=== PATIENT | male | born 1955 | race Caucasian/White ===

== ENCOUNTER 2019-02-08 09:18 | Emergency (ER) | payer BC, OTHER ==
[~2019-02-08] VITALS: Ht 180.3 cm; Wt 124.7 kg
[2019-02-08] MEDS ORDERED: NORVASC5 MG PO (09:38)
[2019-02-08] MEDS ORDERED: CLONIDINE HCL0.3 M3 PO (09:39)
[2019-02-08] MEDS ORDERED: METFORMIN HCL500 MG PO (09:40)
[2019-02-08] MEDS ORDERED: GLYBURIDE 5 MG T5 M1 PO (09:42)
[2019-02-08] MEDS ORDERED: WELLBUTRIN SR150 MG PO (09:43)
[2019-02-08] MEDS ORDERED: FLEXERIL PO ×2 (09:44→09:53)
[2019-02-08] MEDS ORDERED: TORADOL 10 MG T10 MG PO (09:53)
[2019-02-08 10:43] VITALS: BP 146/72
== END 2019-02-08 10:44 | disposition home or self-care (01) ==
LOC: M.ERS 09:18
DX: M79.18 Myalgia, other site (principal); M25.511 Pain in right shoulder; F17.220 Nicotine dependence, chewing tobacco, uncomplicated

== ENCOUNTER 2021-05-27 09:07 | Emergency (ER) | payer MEDICARE, BC ==
[~2021-05-27] VITALS: Ht 177.8 cm; Wt 120.2 kg
[~2021-05-27 09:07] MED LIST: CLONIDINE HCL0.3 M3 PO; FLEXERIL PO; GLYBURIDE 5 MG T5 M1 PO; METFORMIN HCL500 MG PO; NORVASC5 MG PO; TORADOL 10 MG T10 MG PO; WELLBUTRIN SR150 MG PO
[2021-05-27] MEDS ORDERED: ALLOPURINOL 10100 M1 PO (09:24)
[2021-05-27] MEDS ORDERED: FUROSEMIDE 20 M20 MG PO (09:24)
[2021-05-27] MEDS ORDERED: CLONIDINE HCL0.3 M3 PO (09:25)
--- NOTE | 2021-05-27 10:00 | EKG ---
[place] [address] ELECTROCARDIOGRAM REPORT Name: BRADLY HARRIS Room: [facility]#: [id number] Admission: Attend Phys: Discharge: Date of : 55 Date of Service: 05/27/21940 Report #: [id number] THIS REPORT FOR: //name// [facility] ED Test Date: 2021-05-27 Test Time: 09:41:04 Pat Name: BRADLY HARRIS Department: Room: Gender: Manager Academic: : 1955 Requested By: Volodymyr Bassett Order Number: [id number] MD: Sami Addison Measurements Intervals [place] Rate: 65 P: 25 MS: 224 QRS: -23 QRSD: 153 T: -26 QT: 453 QTc: 472 Interpretive Statements Sinus rhythm Prolonged MS interval Right bundle branch block Baseline wander in lead(s) V1,V2 No previous ECG available for comparison Electronically Signed On 05-27-2021 10:00:37 CDT by Sami Addison [email or web address] <ELECTRONICALLY SIGNED> By: Sami Addison MD, [facility] 05/27/21 1000 0 Sami Addison MD, [facility] /EPI
[2021-05-27 10:08] LABS: ABSOLUTE EOSINOPHILS 0.2 thou/uL (0.0-0.7); ABSOLUTE LYMPHOCYTES 1.1 thou/uL (0.8-5.3); ABSOLUTE MONOCYTES 0.6 thou/uL (0.0-1.2); ABSOLUTE NEUTROPHILS 4.5 thou/uL (1.6-8.1); BASOPHILS 0.7 %; EOSINOPHILS 2.7 %; HEMATOCRIT 43.5 % (42.0-52.0); HEMOGLOBIN 14.9 gm/dL (14.0-18.0); LYMPHOCYTES 17.6 %; MCH 30.9 pg (26.0-34.0); MCHC 34.3 g/dL (28.0-37.0); MCV 90.1 fL (80.0-100.0); MONOCYTES 9.1 %; MPV 8.2 fl. (7.2-11.1); NUCLEATED RBCS 0 /100WBC; PLATELET COUNT* 145 thou/uL (150-400); POLYS 69.9 %; RBC 4.82 mil/uL (4.50-6.00); RDW-CV 13.9 % (10.5-14.5); WBC 6.4 thou/uL (4.0-11.0)
[2021-05-27] MEDS ORDERED: PREDNISONE 20 M20 M1 PO (10:16)
[2021-05-27] MEDS ORDERED: PERCOCET PO (10:16)
[2021-05-27 10:17] LABS: CALCIUM 8.2 mg/dL (8.5-10.1); POTASSIUM 3.7 mmol/L (3.5-5.1)
[2021-05-27 10:21] LABS: TOTAL BILIRUBIN 1.3 mg/dL (<0.1-1.0); TOTAL PROTEIN 6.7 g/dL (6.4-8.2); URIC ACID* 7.2 mg/dL (2.6-7.2)
[2021-05-27 11:44] LABS: ESR (SEDRATE) 27 mm/hr (0-20)
[2021-05-27 12:42] VITALS: BP 180/90
== END 2021-05-27 12:43 | disposition home or self-care (01) ==
LOC: M.ERS 09:07
PROVIDERS: Family Medicine
DX: M10.9 Gout, unspecified (principal); I10 Essential (primary) hypertension; E11.9 Type 2 diabetes mellitus without complications; E78.5 Hyperlipidemia, unspecified; Z79.899 Other long term (current) drug therapy

== ENCOUNTER 2021-08-13 16:12 | Emergency (ER) | payer MEDICARE, BC ==
[~2021-08-13] VITALS: Ht 177.8 cm; Wt 124.7 kg
[~2021-08-13 16:12] MED LIST changes: +ALLOPURINOL 10100 M1 PO; +FUROSEMIDE 20 M20 MG PO; +PERCOCET PO; +PREDNISONE 20 M20 M1 PO
[2021-08-13 17:06] VITALS: BP 00/00
== END 2021-08-13 17:10 | disposition home or self-care (01) ==
LOC: M.ERS 16:12
DX: R07.81 Pleurodynia (principal); M79.604 Pain in right leg; Z53.21 Procedure and treatment not carried out due to patient leaving prior to being seen by health care provider